=== PATIENT | male | born 1965 | race Asian ===

== ENCOUNTER 2018-07-24 15:26 | Emergency (ER) | payer SELFPAY ==
[2018-07-24 15:34] VITALS: BP 165/93
[2018-07-24] MEDS ORDERED: PIPERACILLIN/TAZOBACTAM 3.375 GM VIAL IV ONE (17:00)
[2018-07-24] MEDS ORDERED: VANCOMYCIN HCL INJ 1000 MG VIAL IV ONE (17:00)
--- NOTE | 2018-07-24 17:01 | ER Document Report ---
ED Medical Screen (RME) - General Chief Complaint: Leg Pain Stated Complaint: LEFT LEG PAIN Time Seen by Provider: 07/24/18 15:35 Notes: 52-year-old male to the emergency department chief complaint of left lower extremity swelling with drainage coming out the left calf. Present for approximately 1 week and getting worse. Does not remember any trauma. Does not remember any bug bites. Denies any other major symptoms. Has not taken anything. No prior medical problems. Patient is Bulgarian speaking only. I have greeted and performed a rapid initial assessment of this patient. A comprehensive ED assessment and evaluation of the patient, analysis of test results and completion of the medical decision making process will be conducted by additional ED providers. TRAVEL OUTSIDE OF THE [place] IN LAST 30 DAYS: No - Related Data Allergies/Adverse Reactions: No Known Allergies Allergy (Verified 07/24/18 15:32) Past Medical History - Social History Drug Abuse: None Renal/ Medical History: Denies: Hx Peritoneal Dialysis Review of Systems - Review of Systems Notes: Of systems positive for the following: Leg pain, leg swelling, drainage from the left leg Physical Exam - Vital signs Vitals: Temp Pulse Resp BP Pulse Ox 98.2 F 89 18 165/93 H 95 07/24/18 15:29 07/24/18 15:29 07/24/18 15:29 07/24/18 15:29 07/24/18 15:29 Course - Vital Signs Vital signs: Temp Pulse Resp BP Pulse Ox 98.2 F 89 18 165/93 H 95 07/24/18 15:29 07/24/18 15:29 07/24/18 15:29 07/24/18 15:29 07/24/18 15:29
[2018-07-24 17:35] LABS: ABSOLUTE BASOPHILS # (AUTO) 0.1 10^3/uL (0.0-0.2); ABSOLUTE EOSINOPHILS # (AUTO) 0.1 10^3/uL (0.0-0.6); ABSOLUTE LYMPHOCYTES (AUTO) 1.7 10^3/uL (0.5-4.7); ABSOLUTE MONOCYTES (AUTO) 0.9 10^3/uL (0.1-1.4); TOTAL CELLS COUNTED % (AUTO) 100 %
[2018-07-24 17:41] LABS: ABSOLUTE NEUT (AUTO) 7.9 10^3/uL (1.7-8.2); BASOPHILS % (AUTO) 0.5 % (0-2); EOSINOPHILS % (AUTO) 0.7 % (0-6); HEMATOCRIT 44.2 % (37.9-51.0); HEMOGLOBIN 15.6 g/dL (13.5-17.0); LYMPHOCYTES % (AUTO) 15.7 % (13-45); MEAN CORPUSCULAR HEMOGLOBIN 31.4 pg (27.0-33.4); MEAN CORPUSCULAR HGB CONC 35.2 g/dL (32.0-36.0); MEAN CORPUSCULAR VOLUME 89 fl (80-97); MONOCYTES % (AUTO) 8.7 % (3-13); PLATELET COUNT 239 10^3/uL (150-450); RED BLOOD COUNT 4.96 10^6/uL (4.35-5.55); RED CELL DISTRIBUTION WIDTH 13.7 % (11.5-14.0); SEGMENTED NEUTROPHILS % (AUTO) 74.4 % (42-78); WHITE BLOOD COUNT 10.6 10^3/uL (4.0-10.5)
[2018-07-24 17:50] LABS: ALANINE AMINOTRANSFERASE 147 U/L (21-72); ALBUMIN 4.3 g/dL (3.5-5.0); ALKALINE PHOSPHATASE 76 U/L (38-126); ANION GAP 14 (5-19); ASPARTATE AMINO TRANSFERASE 87 U/L (17-59); BILIRUBIN,DIRECT 0.4 mg/dL (0.0-0.4); BILIRUBIN,TOTAL 0.7 mg/dL (0.2-1.3); BLOOD UREA NITROGEN 16 mg/dL (7-20); CALCIUM 9.4 mg/dL (8.4-10.2); CARBON DIOXIDE 23 mmol/L (22-30); CHLORIDE 103 mmol/L (98-107); GLUCOSE 107 mg/dL (75-110); SODIUM 139.8 mmol/L (137-145); TOTAL PROTEIN 8.4 g/dL (6.3-8.2)
[2018-07-24] MEDS ORDERED: FENTANYL CITRATE INJ/PF 100 MCG/2 ML AMPUL IV ONE (19:04)
--- NOTE | 2018-07-24 19:04 | ER Document Report ---
ED General - General Chief Complaint: Leg Pain Stated Complaint: LEFT LEG PAIN Time Seen by Provider: 07/24/18 15:35 Mode of Arrival: Ambulatory Information source: Patient TRAVEL OUTSIDE OF THE [place] IN LAST 30 DAYS: No - HPI Patient complains to provider of: leg pain Onset: Other - 52-year-old man presents for evaluation of 3 days of pain and swelling in the left leg, he notes that it has been increasing in size and pain over that time. Denies any other health problems does not take any medications. Denies any fevers but has had a feeling of some warmth in the leg. Denies any history of blood clots in the past shortness of breath chest pain dizziness diaphoresis rashes elsewhere abdominal pain diarrhea constipation or dysuria. - Related Data Allergies/Adverse Reactions: No Known Allergies Allergy (Verified 07/24/18 15:32) Past Medical History - General Information source: Patient - Social History Smoking Status: Never Smoker Drug Abuse: None Family History: None Patient has suicidal ideation: No Patient has homicidal ideation: No Renal/ Medical History: Denies: Hx Peritoneal Dialysis Review of Systems - Review of Systems -: Yes All other systems reviewed and negative Physical Exam - Vital signs Vitals: Temp Pulse Resp BP Pulse Ox 98.2 F 89 18 165/93 H 95 07/24/18 15:29 07/24/18 15:29 07/24/18 15:29 07/24/18 15:29 07/24/18 15:29 - General General appearance: Appears well In distress: None - HEENT Head: Normocephalic Eyes: Normal Conjunctiva: Normal Cornea: Normal Extraocular movements intact: Yes Eyelashes: Normal Pupils: PERRL - Respiratory Respiratory status: No respiratory distress Chest status: Nontender Breath sounds: Normal Chest palpation: Normal - Cardiovascular Rhythm: Regular Heart sounds: Normal auscultation Murmur: No - Abdominal Inspection: Normal Distension: No distension Tenderness: Nontender - Back Back: Normal - Extremities General upper extremity: Normal inspection, Nontender, Normal ROM, Normal strength General lower extremity: Other - The left lower extremity demonstrates an area of prominent erythema on the posterior of the calf, there is active serous drainage without any obvious underlying fluctuance or pus, there is some stranding proximally from this area. There is no appreciable erythema or swelling in the proximal left leg, there is a strong DP pulse in the foot as well as PT pulse in the foot - Neurological Neuro grossly intact: Yes Cognition: Normal Orientation: AAOx4 [place]ana Coma Scale Eye Opening: Spontaneous [place] Coma Scale Verbal: Oriented [place] Coma Scale Motor: Obeys Commands [place] Coma Scale Total: 15 Speech: Normal Cranial nerves: Normal Motor strength normal: LUE, RUE, LLE, RLE - Psychological Associated symptoms: Normal affect Course - Re-evaluation Re-evalutation: 07/25/18 04:49 This 52-year-old man has what appears to be a cellulitis over the posterior of the calf. Otherwise well-appearing and healthy gentleman, did have a PVL done of the lower extremity which did not demonstrate any appreciable clot. Patient received Zosyn through triage. We will plan for this patient to undergo discharge with return precautions and a course of antibiotics is able to tolerate p.o. and had a relatively normal lactate. He will follow-up in 24 hours for recheck of the wound. He is given return precautions as well related to fevers are stranding proximally. All interactions were aided with the use of an coin purse framer service. - Vital Signs Vital signs: Temp Pulse Resp BP Pulse Ox 98.2 F 89 18 165/93 H 95 07/24/18 15:29 07/24/18 15:29 07/24/18 15:29 07/24/18 15:29 07/24/18 15:29 - Laboratory Result Diagrams: 07/24/18 17:15 07/24/18 17:15 Laboratory results interpreted by me: 07/24/18 07/24/18 17:15 17:15 WBC 10.6 H AST 87 H ALT 147 H Total Protein 8.4 H Discharge - Discharge Clinical Impression: Cellulitis Qualifiers: Site of cellulitis: extremity Site of cellulitis of extremity: lower extremity Laterality: left Qualified Code(s): L03.116 - Cellulitis of left lower limb Leg pain Qualifiers: Laterality: left Qualified Code(s): M79.605 - Pain in left leg Disposition: HOME, SELF-CARE Instructions: Cellulitis ([facility]) Additional Instructions: Your seen today in the emergency department for your leg infection. you had an evaluation including a physical exam as well as tests of your blood and an ultrasound of your leg. Use the antibiotic prescribed to you as directed for the next 10 days. Come back for a recheck of your leg wound tomorrow. Prescriptions: Sulfamethoxazole/Trimethoprim [Bactrim Ds Tablet] 1 each PO BID #20 tablet Forms: Elevated Blood Pressure
[2018-07-24] MEDS ORDERED: HYDROCODONE/ACETAMINOPHEN 5-325 MG (6 TAB/ER DISP) PO PRN (20:29)
--- NOTE | 2018-07-25 08:27 | XCELERA REPORT ---
[address] [employer] [facility] [address] Lower Extremity Venous Evaluation Procedure: Color flow and duplex imaging of the veins of the left lower extremity as well as the right Common Femoral vein. Right Sided Venous Evaluation The right common femoral vein is fully compressible. Spontaneous and phasic flow is present in the right common femoral vein. Left Sided Venous Evaluation Normal vessel filling wall to wall, compression and augmentation as well as Colour flow down to the infrageniculate veins. Interpretation Summary No duplex evidence of DVT or obstruction in the left lower extremity nor in the right Common Femoral vein. Name: MERARI HAYDEN Age: 52 yrs Gender: Male : 1965 Patient Status: Emergency Patient Location: ER Study Date: 07/24/2018 07:44 PM Reason For Study: pain left leg with swelling Ordering Physician: ANAID JURADO Performed By: Merly Medina : ANAID JURADO > Bijan Gonzalez
== END 2018-07-24 22:19 | disposition home or self-care (01) ==
LOC: ER 15:26
DX: L03.116 Cellulitis of left lower limb (principal); M79.605 Pain in left leg
CPT/HCPCS: 99284; 96375; 96365; 36415; 87040; 85025; 80053; 83605; 93971 ×2; J3010; J2543; 96374

== ENCOUNTER 2018-08-04 14:04 | Emergency (ER) | payer SELFPAY ==
--- NOTE | 2018-08-04 16:19 | ER Document Report ---
ED Extremity Problem, Lower - General Chief Complaint: Leg Pain Stated Complaint: RECHECK/LEFT LOWER LEG SKIN ISSUE Time Seen by Provider: 08/04/18 15:23 Mode of Arrival: Ambulatory Information source: Patient Notes: 52-year-old male presents emergency department for a wound check. Patient is Mandarin speaking. mechanical apprentice was used. Patient was seen in the emergency department and diagnosed with cellulitis approximately 10 days ago. Patient was started on Bactrim. Patient states that he finished the antibiotic. He states that the erythema and swelling has improved. He denies any recent travel, recent surgery, history of blood clots, shortness of breath. No calf pain. TRAVEL OUTSIDE OF THE [place] IN LAST 30 DAYS: No - HPI Patient complains to provider of: Pain, Swelling Location: Leg Occurred: Other - 10 days ago Where: Home Onset/Duration: Gradual Quality of pain: Dull Severity: Mild Pain Level: 0 Recent injury: No Exacerbated by: Nothing Relieved by: Nothing - Related Data Allergies/Adverse Reactions: No Known Allergies Allergy (Verified 08/04/18 14:05) Past Medical History - Social History Smoking Status: Never Smoker Family History: None, Reviewed & Not Pertinent Patient has suicidal ideation: No Patient has homicidal ideation: No Renal/ Medical History: Denies: Hx Peritoneal Dialysis Review of Systems - Review of Systems Constitutional: No symptoms reported EENT: No symptoms reported Cardiovascular: No symptoms reported Respiratory: No symptoms reported Gastrointestinal: No symptoms reported Genitourinary: No symptoms reported Musculoskeletal: Leg swelling Skin: Rash Hematologic/Lymphatic: No symptoms reported Neurological/Psychological: No symptoms reported Physical Exam - Vital signs Vitals: Temp Pulse Resp BP Pulse Ox 97.5 F 90 18 144/86 H 97 08/04/18 14:12 08/04/18 14:12 08/04/18 14:12 08/04/18 14:12 08/04/18 14:12 - Notes Notes: PHYSICAL EXAMINATION: GENERAL: Well-appearing, well-nourished and in no acute distress. HEAD: Atraumatic, normocephalic. EYES: Pupils equal round and reactive to light, extraocular movements intact, sclera anicteric, conjunctiva are normal. ENT: Nares patent, oropharynx clear without exudates. Moist mucous membranes. NECK: Normal range of motion, supple without lymphadenopathy LUNGS: Breath sounds clear to auscultation bilaterally and equal. No wheezes rales or rhonchi. HEART: Regular rate and rhythm without murmurs ABDOMEN: Soft, nontender, nondistended abdomen. No guarding, no rebound. Musculoskeletal: Normal range of motion, no pitting or edema. No cyanosis. No calf tenderness to palpation. NEUROLOGICAL: Cranial nerves grossly intact. Normal speech, normal gait. Normal sensory, motor exams SKIN: Warm, Dry, normal turgor, Baseball size area of erythema to the LLE with associated dry skin. Patient says it's healing. Course - Re-evaluation Re-evalutation: 08/04/18 16:17 Patient had venous doppler done on his previous ED visit. He was diagnosed with cellulitis and started on bactrim. He was told to return to the ED when the anti -biotic was finished for a wound check. Patient states that his cellulitis is healing. The swelling has reduced significantly. Has approximately a softball sized area of slight erythema to the left lower extremity. No pain or warmth with palpation. No calf tenderness to palpation. I'll start the patient on doxycycline. Instructed the patient to follow-up with his primary care physician next week for a wound check, to take the medication prescribed as directed, and to return to the emergency department for worsening symptoms. Patient is agreeable with plan of care. 08/04/18 16:22 - Vital Signs Vital signs: Temp Pulse Resp BP Pulse Ox 97.5 F 90 18 144/86 H 97 08/04/18 14:12 08/04/18 14:12 08/04/18 14:12 08/04/18 14:12 08/04/18 14:12 Discharge - Discharge Clinical Impression: Visit for wound check Cellulitis Qualifiers: Site of cellulitis: extremity Site of cellulitis of extremity: lower extremity Laterality: left Qualified Code(s): L03.116 - Cellulitis of left lower limb Condition: Good Disposition: HOME, SELF-CARE Instructions: Cellulitis ([facility]) Prescriptions: Doxycycline Hyclate 100 mg PO BID #14 capsule Referrals: OLGA ERAZO MD [COMMUNITY BASED STAFF] - Follow up as needed
[2018-08-04 17:01] VITALS: BP 139/89
== END 2018-08-04 17:01 | disposition home or self-care (01) ==
LOC: ER 14:04
DX: L03.116 Cellulitis of left lower limb (principal)
CPT/HCPCS: 99282